=== PATIENT | male | born 1950 | race Hispanic/Latino ===

== ENCOUNTER 2021-03-02 12:15 | Emergency (ER) | payer OTHER ==
[~2021-03-02] VITALS: Ht 175.3 cm; Wt 81.6 kg
[2021-03-02] MEDS ORDERED: MULTIVITAMINS- 12 INJECTION 10 ML, FOLIC ACID MDV 5 MG, THIAMINE HCL INJ 100 MG in SODI... IV ONE (12:45)
[2021-03-02 13:29] LABS: BASOPHILS % 0.5 % (0.0-1.0); HEMATOCRIT 37.5 % (38.2-49.6); HEMOGLOBIN 12.8 g/dL (14.0-18.0); LYMPHOCYTES # (AUTO) 1.1 (1.0-3.2); LYMPHOCYTES % 14.6 % (18.0-39.1); MEAN CORPUSCULAR HEMOGLOBIN 34.7 pg (28-32); MEAN CORPUSCULAR HGB CONC 34.1 g/dL (31-35); MEAN CORPUSCULAR VOLUME 101.6 fL (81-99); MONOCYTES # (AUTO) 0.6 (0.2-0.8); MONOCYTES % 8.6 % (4.4-11.3); NEUTROPHILS # (AUTO) 5.6 (2.1-6.9); PLATELET COUNT 136 x10e3/uL (140-360); RED BLOOD COUNT 3.69 x10e6/uL (4.3-5.7); RED CELL DISTRIBUTION WIDTH 13.8 % (11.7-14.4)
[2021-03-02 13:43] LABS: INR 1.07; PROTHROMBIN TIME 14.5 seconds (11.9-14.5)
[2021-03-02 13:44] LABS: PARTIAL THROMBOPLASTIN TIME 34.9 seconds (23.8-35.5)
[2021-03-02 13:51] LABS: ALANINE AMINOTRANSFERASE 63 IU/L (0-55); ALBUMIN/GLOBULIN RATIO 0.9 (0.8-2.0); ALKALINE PHOSPHATASE 187 IU/L (40-150); ANION GAP 17.3 mmol/L (8-16); BLOOD UREA NITROGEN 5 mg/dL (7-26); BUN/CREATININE RATIO 5 (6-25); CALCIUM 9.6 mg/dL (8.4-10.2); CARBON DIOXIDE 24 mmol/L (22-29); CHLORIDE 98 mmol/L (98-107); CREATINE KINASE 74 IU/L (30-200); CREATININE, SERUM 0.94 mg/dL (0.72-1.25); EST GLOMERULAR FILTRATION RATE 80 ML/MIN (60-); GLUCOSE 107 mg/dL (74-118); MAGNESIUM 2.1 MG/DL (1.3-2.1); POTASSIUM 4.3 mmol/L (3.5-5.1); SODIUM 135 mmol/L (136-145)
[2021-03-02 15:53] VITALS: BP 143/68
== END 2021-03-02 15:57 | disposition home or self-care (01) ==
LOC: ER 12:52
DX: R42 Dizziness and giddiness (principal); E86.0 Dehydration; Z72.0 Tobacco use; F10.20 Alcohol dependence, uncomplicated
CPT/HCPCS: 36415; 70450; 71045; 80053; 82550; 82553; 83735; 84484; 85025; 85610; 85730; 93005; 99283; J3411; J7030

== ENCOUNTER 2021-09-28 16:05 | Emergency (ER) | payer OTHER ==
[~2021-09-28] VITALS: Ht 175.3 cm; Wt 81.6 kg
[2021-09-28] MEDS ORDERED: IBUPROFEN 400 MG TAB PO ONE (17:30)
[2021-09-28] MEDS ORDERED: ULTRAM 50MG50 MG PO (18:19)
== END 2021-09-28 18:35 | disposition home or self-care (01) ==
LOC: ER 16:37
DX: R07.89 Other chest pain (principal); S22.42XA Multiple fractures of ribs, left side, initial encounter for closed fracture; W01.198A Fall on same level from slipping, tripping and stumbling with subsequent striking against other object, initial encounter; Y93.01 Activity, walking, marching and hiking; Y92.008 Other place in unspecified non-institutional (private) residence as the place of occurrence of the external cause; F17.210 Nicotine dependence, cigarettes, uncomplicated
CPT/HCPCS: 71111; 99283

== ENCOUNTER 2024-01-12 05:35 | Emergency (ER) | payer OTHER ==
[~2024-01-12] VITALS: Ht 175.3 cm; Wt 52.2 kg
[~2024-01-12 05:35] MED LIST: CENTRUM ADULTS1 EACH PO; LEVOTHYROXINE50 MCG PO; LEVOTHYROXINE75 MCG PO; ULTRAM 50MG50 MG PO
[2024-01-12] MEDS: SODIUM CHLORIDE 0.9% 1000ML 2,000 ML IV STA (06:04)
[2024-01-12 06:20] LABS: BASOPHILS % 0.3 % (0.0-1.0); EOSINOPHILS # (AUTO) 0.1 (0.0-0.4); EOSINOPHILS % 1.9 % (0.0-6.0); LYMPHOCYTES # (AUTO) 1.6 (1.0-3.2); LYMPHOCYTES % 22.3 % (18.0-39.1); MEAN CORPUSCULAR HEMOGLOBIN 30.5 pg (28-32); MEAN CORPUSCULAR HGB CONC 32.4 g/dL (31-35); MEAN CORPUSCULAR VOLUME 94.2 fL (81-99); MONOCYTES # (AUTO) 0.7 (0.2-0.8); MONOCYTES % 9.6 % (4.4-11.3); NEUTROPHILS # (AUTO) 4.8 (2.1-6.9); NEUTROPHILS % 65.4 % (38.7-80.0); PLATELET COUNT 170 x10e3/uL (140-360); RED BLOOD COUNT 3.61 x10e6/uL (4.3-5.7); RED CELL DISTRIBUTION WIDTH 12.8 % (11.7-14.4); WHITE BLOOD COUNT 7.31 x10e3/uL (4.8-10.8)
[2024-01-12 06:40] LABS: ALBUMIN 3.3 g/dL (3.5-5.0); ALBUMIN/GLOBULIN RATIO 0.9 (0.8-2.0); ANION GAP 13.7 mmol/L (8-16); BILIRUBIN,TOTAL 0.6 mg/dL (0.2-1.2); CREATININE, SERUM 0.85 mg/dL (0.72-1.25); POTASSIUM 3.7 mmol/L (3.5-5.1); TOTAL PROTEIN 7.1 g/dL (6.5-8.1)
[2024-01-12 06:41] LABS: TROPONIN I 0.006 ng/mL (0-0.300)
[2024-01-12 08:37] VITALS: O2SAT 99
== END 2024-01-12 08:52 | disposition home or self-care (01) ==
LOC: ER 05:43 → MERGE 05:43 → ER 08:52
DX: R55 Syncope and collapse (principal); E86.1 Hypovolemia; M54.2 Cervicalgia; Z11.52 Encounter for screening for COVID-19
CPT/HCPCS: 36415; 70450; 71045; 72125; 80053; 80320; 82550; 83690; 83880; 84484; 85025; 93005; 99284; J7030; U0002

== ENCOUNTER 2024-07-16 11:02 | Inpatient (IN) | payer OTHER ==
[2024-07-16] VITALS (8 sets, daily range): BP systolic 115–122; BP diastolic 58–65; PULSE 86–89; RESP 16–18; TEMP 97.9–99.2; O2SAT 99–100
[~2024-07-16] VITALS: Ht 175.3 cm; Wt 52.2 kg
[2024-07-16 11:31] LABS: BASOPHILS # (AUTO) 0.1 (0.0-0.1); BASOPHILS % 0.4 % (0.0-1.0); EOSINOPHILS # (AUTO) 0.1 (0.0-0.4); EOSINOPHILS % 0.3 % (0.0-6.0); HEMATOCRIT 42.5 % (38.2-49.6); HEMOGLOBIN 14.1 g/dL (14.0-18.0); LYMPHOCYTES # (AUTO) 2.6 (1.0-3.2); MEAN CORPUSCULAR HEMOGLOBIN 33.3 pg (28-32); MEAN CORPUSCULAR HGB CONC 33.2 g/dL (31-35); MEAN CORPUSCULAR VOLUME 100.5 fL (81-99); MONOCYTES # (AUTO) 1.1 (0.2-0.8); MONOCYTES % 7.4 % (4.4-11.3); NEUTROPHILS # (AUTO) 10.6 (2.1-6.9); NEUTROPHILS % 73.5 % (38.7-80.0); PLATELET COUNT 186 x10e3/uL (140-360); RED BLOOD COUNT 4.23 x10e6/uL (4.3-5.7); RED CELL DISTRIBUTION WIDTH 14.5 % (11.7-14.4); WHITE BLOOD COUNT 14.42 x10e3/uL (4.8-10.8)
[2024-07-16 11:42] LABS: INR 1.07; PARTIAL THROMBOPLASTIN TIME 33.3 seconds (23.8-35.5); PROTHROMBIN TIME 14.6 seconds (11.9-14.5)
[2024-07-16] MEDS: SODIUM CHLORIDE 0.9% 1000ML 1,000 ML IV ONE (11:46)
[2024-07-16 12:11] LABS: BILIRUBIN,URINE NEGATIVE (NEGATIVE); CLARITY,URINE HAZY (CLEAR); COLOR,URINE YELLOW (YELLOW); GLUCOSE, URINE NEGATIVE (NEGATIVE); KETONES,URINE NEGATIVE (NEGATIVE); LEUKOCYTE ESTERASE ,URINE LARGE (NEGATIVE); NITRITE,URINE NEGATIVE (NEGATIVE); PH,URINE 6 (5 - 7); PROTEIN,URINE DIPSTICK 1+ (NEGATIVE); URINE UROBILINOGEN 0.2 mg/dL (0.2 - 1)
[2024-07-16 12:12] LABS: BACTERIA,URINE MANY /HPF; EPITHELIAL CELLS,URINE FEW /LPF; WBC,URINE (MAN) >50 /HPF (0-5)
[2024-07-16 12:13] LABS: AMORPHOUS SEDIMENT,URINE FEW (FEW); MUCUS,URINE MODERATE (RARE)
[2024-07-16 12:41] LABS: ALBUMIN 3.3 g/dL (3.5-5.0); ALBUMIN/GLOBULIN RATIO 0.9 (0.8-2.0); ANION GAP 17.3 mmol/L (8-16); BILIRUBIN,TOTAL 0.7 mg/dL (0.2-1.2); CALCIUM 8.8 mg/dL (8.4-10.2); CREATININE, SERUM 1.35 mg/dL (0.72-1.25); TOTAL PROTEIN 7.1 g/dL (6.5-8.1)
[2024-07-16] MEDS ORDERED: SODIUM CHLORIDE 0.9% 1000ML 1,000 ML ONE (12:46)
[2024-07-16] MEDS: SODIUM CHLORIDE 0.9% 1000ML 1,560 ML IV SCH (12:51)
[2024-07-16 12:53] LABS: POTASSIUM 4.3 mmol/L (3.5-5.1)
[2024-07-16] MEDS ORDERED: ONDANSETRON HCL INJ 2MG/ML 2ML 2 MG/ML VIAL IV PRN (16:15)
[2024-07-16] MEDS: SODIUM CHLORIDE 0.9% 1000ML 1,000 ML IV SCH (18:14)
[2024-07-16] MEDS ORDERED: FLOMAX0.4 MG PO (18:31)
[2024-07-16] MEDS ORDERED: FEROSUL325 MG PO (18:31)
[2024-07-16] MEDS ORDERED: OMEGA-31000 MG PO (18:31)
[2024-07-16] MEDS ORDERED: PRAVASTATIN SOD20 MG (18:33)
[2024-07-16] MEDS ORDERED: LOSARTAN POTASS25 MG PO (18:33)
[2024-07-17] VITALS (10 sets, daily range): BP systolic 115–139; BP diastolic 59–84; PULSE 73–89; RESP 16–18; TEMP 97.9–99.4; O2SAT 95–100
[2024-07-17 06:11] LABS: BASOPHILS % 0.4 % (0.0-1.0); EOSINOPHILS # (AUTO) 0.1 (0.0-0.4); EOSINOPHILS % 1.7 % (0.0-6.0); HEMATOCRIT 30.7 % (38.2-49.6); HEMOGLOBIN 10.5 g/dL (14.0-18.0); LYMPHOCYTES # (AUTO) 1.5 (1.0-3.2); MEAN CORPUSCULAR HEMOGLOBIN 33.5 pg (28-32); MEAN CORPUSCULAR HGB CONC 34.2 g/dL (31-35); MEAN CORPUSCULAR VOLUME 98.1 fL (81-99); MONOCYTES # (AUTO) 0.6 (0.2-0.8); NEUTROPHILS # (AUTO) 5.4 (2.1-6.9); NEUTROPHILS % 70.6 % (38.7-80.0); PLATELET COUNT 132 x10e3/uL (140-360); RED BLOOD COUNT 3.13 x10e6/uL (4.3-5.7); RED CELL DISTRIBUTION WIDTH 14.1 % (11.7-14.4); WHITE BLOOD COUNT 7.62 x10e3/uL (4.8-10.8)
[2024-07-17 06:36] LABS: ALBUMIN 2.9 g/dL (3.5-5.0); ANION GAP 11.4 mmol/L (8-16); BILIRUBIN,TOTAL 0.5 mg/dL (0.2-1.2); CALCIUM 8.2 mg/dL (8.4-10.2); CREATININE, SERUM 0.79 mg/dL (0.72-1.25); TOTAL PROTEIN 5.8 g/dL (6.5-8.1)
[2024-07-17 06:38] LABS: POTASSIUM 3.4 mmol/L (3.5-5.1)
[2024-07-17] MEDS: ENOXAPARIN SOD INJ 60 MG/0.6 ML SYR SC SCH (08:57)
[2024-07-17] MEDS: NITROFURANTOIN MACROCRYSTALS 100 MG CAP PO SCH (17:59)
[2024-07-18 00:37] VITALS: BP 135/75; PULSE 83; RESP 16; TEMP 98.3; O2SAT 99
[2024-07-18 00:51] VITALS: BP 135/75; PULSE 86; RESP 16; TEMP 98.3; O2SAT 99
[2024-07-18 04:00] VITALS: BP 145/74; PULSE 77; RESP 17; TEMP 98.3; O2SAT 97
[2024-07-18 05:02] VITALS: BP 135/75; PULSE 86; RESP 16; TEMP 98.3; O2SAT 99
[2024-07-18 09:27] VITALS: BP 130/72; PULSE 67; RESP 16; TEMP 98; O2SAT 99
[2024-07-18 09:40] VITALS: BP 130/72; PULSE 67; RESP 16; TEMP 98; O2SAT 99
[2024-07-18] MEDS ORDERED: CEFUROXIME500 MG PO (11:07)
[2024-07-18] MEDS ORDERED: ONDANSETRON ODT4 MG PO (11:07)
[2024-07-18] MEDS ORDERED: MIRALAX17 GM PO (11:10)
[2024-07-18] MEDS ORDERED: COLACE100 M1 PO (11:10)
== END 2024-07-18 11:38 | disposition home or self-care (01) | DRG 871 ==
LOC: ER 11:07 → ERHOLD 16:05 → MED/SURG3 17:21
PROVIDERS: ADMIT Internal Medicine; ATTEND Internal Medicine
PROC: 3E0333Z Introduction of Anti-inflammatory into Peripheral Vein, Percutaneous Approach (ICD-10-PCS; principal; 2024-07-16)
DX: A41.51 Sepsis due to Escherichia coli [E. coli] (principal); R65.21 Severe sepsis with septic shock; N39.0 Urinary tract infection, site not specified; I48.0 Paroxysmal atrial fibrillation; I10 Essential (primary) hypertension; E78.5 Hyperlipidemia, unspecified; N40.0 Benign prostatic hyperplasia without lower urinary tract symptoms; E03.9 Hypothyroidism, unspecified; R74.02 Elevation of levels of lactic acid dehydrogenase [LDH]; Z11.52 Encounter for screening for COVID-19; Z79.890 Hormone replacement therapy; F10.10 Alcohol abuse, uncomplicated
CPT/HCPCS: 0223U; 36415; 71045; 80053; 80320; 81001; 83605; 85025; 85610; 85730; 87040; 87086; 87186; 87400; 93005; 99284; J0696; J1650; J7030